=== PATIENT | male | born 1975 ===

== ENCOUNTER 2018-05-27 23:13 | Emergency (ER) | payer SELFPAY ==
--- NOTE | 2018-05-27 23:19 | ED ---
Respiratory - HPI Summary HPI Summary: This patient is a 42 year old M brought in by ambulance to [facility] with a chief complaint of possible carbon monoxide poisoning since earlier today. 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 Around 23:00, carbon monoxide alarms were going off. The fire department showed up and found 325 ppm of carbon monoxide. The patient is from [place] so he was staying in a hotel and was told by his boss that he would be brought in by ambulance to [facility]. Patient denies dizziness, lightheadedness, CP, trouble breathing, abdominal pain, or any other symptoms. He is not on any medications and does not smoke, drink, or use any other drugs. - History of Current Complaint Stated Complaint: CO EXPOSURE Hx Obtained From: Patient Onset/Duration: Sudden Onset, Lasting Hours, Still Present Associated Signs and Symptoms: Chest Pain - Denies, Dizziness - Denies - Allergy/Home Medications Allergies/Adverse Reactions: Allergies Allergy/AdvReac Type Severity Reaction Status Date / Time shellfish derived Allergy Hives/Diff. Verified 05/27/18 23:25 Breathing/I tching Home Medications: Home Medications NK [No Home Medications Reported] 05/27/18 [History Confirmed 05/27/18] PMH/Surg Hx/FS Hx/Imm Hx Endocrine/Hematology History: Denies: Hx Diabetes Cardiovascular History: Denies: Hx Coronary Artery Disease Respiratory History: Reports: Hx Asthma - Family History Known Family History: Positive: Cardiac Disease, Hypertension, Diabetes - Social History Alcohol Use: None Hx Substance Use: No Substance Use Type: Reports: None Hx Tobacco Use: No Review of Systems Negative: Chest Pain Negative: Shortness Of Breath Negative: Abdominal Pain Neurological: Other - Denies dizziness and lightheadedness All Other Systems Reviewed And Are Negative: Yes Physical Exam - Summary Physical Exam Summary: Appearance: Well-appearing, Well-nourished, lying in bed comfortably Skin: Warm, dry, no obvious rash Eyes: sclera anicteric, no conjunctival pallor ENT: mucous membranes moist, pharynx appears normal Neck: Supple, nontender Respiratory: Clear to auscultation, no signs of respiratory distress Cardiovascular: Normal S1, S2. No murmurs. Normal distal pulses in tibial and radial bilaterally. Abdomen: Soft, nontender, normal active bowel sounds present Musculoskeletal: Normal, Strength/ROM Intact Neurological: A&Ox3, awake and alert, mentation is normal, speech is fluent and appropriate Psychiatric: affect is normal, does not appear anxious or depressed Triage Information Reviewed: Yes Vital Signs On Initial Exam: Initial Vitals Temp Pulse Resp BP Pulse Ox 99.2 F 93 18 161/86 99 05/27/18 23:24 05/27/18 23:24 05/27/18 23:24 05/27/18 23:24 05/27/18 23:24 Vital Signs Reviewed: Yes Diagnostics - Laboratory Result Diagrams: 05/27/18 23:28 05/27/18 23:28 Lab Statement: Any lab studies that have been ordered have been reviewed, and results considered in the medical decision making process. - EKG 23:35 Cardiac Rate: NL - 70 BPM EKG Rhythm: Sinus Rhythm ST Segment: Normal Ectopy: None Disposition - Course Course Of Treatment: This patient is a 42 year old M brought in by ambulance to [facility] with a chief complaint of possible carbon monoxide poisoning since earlier today. 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 Around 23:00, carbon monoxide alarms were going off. The fire department showed up and found 325 ppm of carbon monoxide. The patient is from [place] so he was staying in a hotel and was told by his boss that he would be brought in by ambulance to [facility]. Patient denies dizziness, lightheadedness, CP, trouble breathing, abdominal pain, or any other symptoms. He is not on any medications and does not smoke, drink, or use any other drugs. The patient's workup was unremarkable. I informed the patient of the latent effects of CO and to report back if he observed any of these symptoms. The patient understands and agrees. - Diagnoses Provider Diagnoses: Carbon monoxide exposure Discharge - Sign-Out/Discharge Documenting (check all that apply): Patient Departure - D/C - Discharge Plan Condition: Good Disposition: HOME Patient Education Materials: Carbon Monoxide Poisoning (ED) Referrals: No Primary Care Phys,NOPCP [Primary Care Provider] - Additional Instructions: Sometimes the consequences of a carbon monoxide exposure do not become evident or present themselves for several weeks or even months after the exposure (the average is 3 weeks). So if you develop symptoms like trouble concentrating, headaches, visual problems you should alert your employer and get in to see an licensed occupational therapist. - Billing Disposition and Condition Condition: GOOD Disposition: Home - Attestation Statements Document Initiated by Giuliana: Yes Documenting Scribe: Js Donohue Provider For Whom Giuliana is Documenting (Include Credential): Aleksander Aranda MD Scribe Attestation: Js Taylor, scribed for Aleksander Aranda MD on 05/28/18 at 0413. Scribe Documentation Reviewed: Yes Provider Attestation: The documentation as recorded by the Js garcia accurately reflects the service I personally performed and the decisions made by me, Aleksander Aranda MD Status of Scribe Document: Viewed
[2018-05-27 23:43] LABS: ABS Basophils 0.1 10^3/ul (0-0.2); ABS Eosinophils 0.3 10^3/ul (0-0.6); ABS Monocytes 0.6 10^3/ul (0-0.8); ABS Neutrophils 6.6 10^3/ul (1.5-7.7); ABS Nucleated RBC 0 10^3/ul; Eosinophil % 2.9 %; Hematocrit 41 % (42-52); Hemoglobin 14.1 g/dl (14.0-18.0); Lymphocyte % 21.4 %; Mean Corpuscular HGB Conc 34 g/dl (31-36); Mean Corpuscular Hemoglobin 30 pg (27-31); Mean Corpuscular Volume 88 fL (80-94); Mean Platelet Volume 8.1 fL (7.4-10.4); Nucleated Red Blood Cells % 0.1; Platelet Count 288 10^3/ul (150-450); Red Blood Count 4.68 10^6/ul (4.00-5.40); Red Cell Distribution Width 13 % (10.5-15); White Blood Count 9.5 10^3/ul (3.5-10.8)
[2018-05-28 00:05] LABS: BUN/Creatinine Ratio 24.4 (8-20); Calcium 9.2 mg/dL (8.6-10.3)
[2018-05-28 00:28] LABS: Potassium 3.8 mmol/L (3.5-5.0)
== END 2018-05-28 03:21 | disposition home or self-care (01) ==
LOC: ED 23:13
DX: T58.11XA Toxic effect of carbon monoxide from utility gas, accidental (unintentional), initial encounter (principal); Y92.9 Unspecified place or not applicable; Z91.013 Allergy to seafood
CPT/HCPCS: 36415; 80048; 82375; 84484; 85025; 93005; 99282